=== PATIENT | female | born 1995 | race Hispanic/Latino ===

== ENCOUNTER 2018-06-14 08:58 | Emergency (ER) | payer OTHER ==
[~2018-06-14] VITALS: Ht 154.9 cm; Wt 54.5 kg
[2018-06-14 08:59] VITALS: BP 122/74
[2018-06-14] MEDS ORDERED: PRENTAB55 PO (09:02)
--- NOTE | 2018-06-14 09:41 | REP ---
RIGHT SHOULDER: Three views. HISTORY: Right shoulder pain. Injury in a fall. FINDINGS: Three views of the right shoulder demonstrate normal alignment of the glenohumeral and acromioclavicular joints. No fracture or subluxation is seen. IMPRESSION: Negative right shoulder radiographs. Electronically Signed by Mau Dao MD 06/14/2018 05:30 P
[2018-06-14] MEDS ORDERED: IBUP-1022 PO (09:46)
== END 2018-06-14 09:56 | disposition home or self-care (01) ==
LOC: M ED 08:58
DX: S46.811A Strain of other muscles, fascia and tendons at shoulder and upper arm level, right arm, initial encounter (principal); W10.8XXA Fall (on) (from) other stairs and steps, initial encounter; Y92.098 Other place in other non-institutional residence as the place of occurrence of the external cause